=== PATIENT | female | born 1975 | race Two or more races ===

== ENCOUNTER 2018-03-22 13:47 | Outpatient (CLI) | payer OTHER ==
[~2018-03-22 13:47] MED LIST: TAMOXIFEN CITRA20 MG PO
== END 2018-03-22 13:48 | disposition home or self-care (01) ==
LOC: SONOGRAMA 13:47
DX: C50.411 Malignant neoplasm of upper-outer quadrant of right female breast (principal)

== ENCOUNTER 2019-12-14 05:54 | Day surgery (SDC) | payer OTHER ==
[~2019-12-14 05:54] MED LIST changes: +CLONIDINE1 EAC2 TD
== END 2019-12-14 18:00 | disposition home or self-care (01) ==
LOC: CIR.AMB 05:54
PROVIDERS: ATTEND Plastic Surgery
DX: E65 Localized adiposity (principal); N65.1 Disproportion of reconstructed breast; L98.7 Excessive and redundant skin and subcutaneous tissue; M62.08 Separation of muscle (nontraumatic), other site; Z20.828 Contact with and (suspected) exposure to other viral communicable diseases